=== PATIENT | female | born 1980 | race Caucasian/White ===

== ENCOUNTER 2022-10-31 17:26 | Inpatient (IN) | payer MEDICAID ==
[~2022-10-31] VITALS: Ht 157.5 cm; Wt 97.3 kg
[2022-10-31 19:23] LABS: COVID AG,FIA SOURCE NASAL SWAB
[2022-10-31] MEDS ORDERED: ZOLPIDEM TARTRATE 10 MG TABLET PO PRN (22:30)
[2022-10-31] MEDS ORDERED: QUEtiapine FUMARATE 100 MG TABLET PO PRN (22:30)
[2022-11-01 02:59] VITALS: BP 139/82; PULSE 98; RESP 18; TEMP 97.8; O2SAT 97
[2022-11-01] MEDS ORDERED: PNEUMOCOCCAL VACCINE POLYVALENT 0.5 ML SYRINGE [PPSV23] IM. ONE (04:30)
[2022-11-01 08:39] VITALS: BP 103/65; PULSE 78; RESP 19; TEMP 97.8; O2SAT 100
[2022-11-01] MEDS ORDERED: ACETAMINOPHEN 325 MG TABLET PO PRN (09:15)
[2022-11-01] MEDS ORDERED: TUBERCULIN, PURIFIED PROTEIN DERIVATIVE 5 TU/0.1 ML SYRINGE ID ONE (09:15)
[2022-11-01] MEDS ORDERED: LOPERAMIDE HCL 2 MG CAPSULE PO PRN (09:15)
[2022-11-01] MEDS ORDERED: PROMETHAZINE HCL 25 MG TABLET PO PRN (09:15)
[2022-11-01] MEDS ORDERED: MAGNESIUM HYDROXIDE SUSPENSION 30 ML UDCUP PO PRN (09:15)
[2022-11-01] MEDS ORDERED: MAG HYDROX/AL HYDROX/SIMETH ES 30 ML SUSPENSION UDCUP PO PRN (09:15)
[2022-11-01] MEDS ORDERED: OLANZapine 5 MG RAPDIS TABLET PO PRN (09:15)
[2022-11-01] MEDS ORDERED: HydrOXYzine PAMOATE 50 MG CAPSULE PO PRN (09:15)
[2022-11-01] MEDS ORDERED: GuaiFENesin/D-METHORPHAN [SUGAR-FREE] 200-20MG/10 ML SYRUP UDCUP PO PRN (09:15)
[2022-11-01] MEDS: DIVALPROEX SODIUM 500 MG ER TABLET PO SCH ×2 (13:00→13:12)
[2022-11-01] MEDS: THIAMINE 100 MG TABLET PO SCH (17:00)
[2022-11-01] MEDS: LORazepam 2 MG TABLET PO PRN (20:09)
[2022-11-01 20:34] VITALS: BP 107/65; PULSE 98; RESP 19; TEMP 97.6; O2SAT 95
[2022-11-01] MEDS ORDERED: MELATONIN 5 MG TABLET PO SCH (21:00)
[2022-11-01] MEDS ORDERED: OLANZapine 5 MG RAPDIS TABLET PO SCH (21:00)
[2022-11-02 06:42] LABS: GLUCOMETER DEV NAME(LOC) POC.BV
[2022-11-02 08:26] VITALS: BP 111/78; PULSE 84; RESP 16; TEMP 98; O2SAT 96
[2022-11-02] MEDS ORDERED: MULTIVITAMINS WITH MINERALS, THERAPEUTIC TABLET PO SCH (09:00)
[2022-11-02] MEDS: OMEGA-3/DHA/EPA/FISH OIL 1,000 MG CAPSULE PO SCH ×2 (09:00→09:05)
[2022-11-02] MEDS: SERTRALINE HCL 50 MG TABLET PO SCH ×2 (09:00→09:05)
[2022-11-02] MEDS ORDERED: FLUoxetine HCL 20 MG CAPSULE PO SCH (09:00)
[2022-11-02] MEDS ORDERED: FOLIC ACID 1 MG TABLET PO SCH (09:00)
[2022-11-02] MEDS: THIAMINE 100 MG TABLET PO SCH ×2 (09:05→17:01)
[2022-11-02] MEDS: LORazepam 2 MG TABLET PO PRN (12:08)
[2022-11-02] MEDS ORDERED: OMEG-135 PO (13:48)
[2022-11-02] MEDS ORDERED: SERT-439 PO (13:48)
[2022-11-02] MEDS ORDERED: MELA5TAB40 PO (13:48)
== END 2022-11-02 17:13 | disposition home or self-care (01) | DRG 751 ==
LOC: EMS 17:30 → B3A 11-01 00:01
PROVIDERS: ADMIT Psychiatry & Neurology Psychiatry; ATTEND Psychiatry & Neurology Psychiatry
DX: F33.2 Major depressive disorder, recurrent severe without psychotic features (principal); R45.851 Suicidal ideations; Z20.822 Contact with and (suspected) exposure to COVID-19; J45.909 Unspecified asthma, uncomplicated; Z59.00 Homelessness unspecified; Z88.0 Allergy status to penicillin; Z88.8 Allergy status to other drugs, medicaments and biological substances
CPT/HCPCS: 99285; Q9967; Z7502; Z7610